=== PATIENT | female | born 1975 | race Caucasian/White ===

== ENCOUNTER 2020-11-28 13:03 | Emergency (ER) | payer OTHER ==
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
[2020-11-28 15:56] VITALS: BP 100/51; TEMP 98.2; O2SAT 100
== END 2020-11-28 15:40 | disposition home or self-care (01) ==
LOC: ER 13:03
DX: S80.02XA Contusion of left knee, initial encounter (principal); V59.50XA Passenger in pick-up truck or van injured in collision with unspecified motor vehicles in traffic accident, initial encounter; G35 Multiple sclerosis; Z88.0 Allergy status to penicillin
CPT/HCPCS: 99283